=== PATIENT | male | born 1995 | race Caucasian/White ===

== ENCOUNTER 2022-03-20 08:00 | Outpatient (CLI) | payer OTHER | END 2022-03-20 23:59 | disposition home or self-care (01) | LOC: LAB.N 08:00 | PROVIDERS: ATTEND Physician Assistant | DX: R05.9 Cough, unspecified (principal); Z20.822 Contact with and (suspected) exposure to COVID-19 ==

== ENCOUNTER 2023-03-25 14:20 | Outpatient (CLI) | payer OTHER ==
--- NOTE | 2023-03-25 15:07 | Sleep Patient Instructions ---
Sleep Center Visit Summary - Patient Visit Information Reason for Visit: Initial consult for evaluation of sleep disordered breathing and other sleep issues. - Patient Instructions Instructions Attached: Sleep Study, Sleep Clinic Visit, Sleep Study Home Monitor Additional Instructions: You will be completing a sleep study, either an in-lab polysomnography (PSG) or home sleep study (HST). You will follow-up in the sleep care office after the sleep study is completed to hear the results and talk about therapy, if needed. You will be called by our office staff to schedule this appointment, but you may contact us with any questions. - Clinic Information Contact: [facility] [address] [place] [id number] [email or web address] T: [phone]
--- NOTE | 2023-03-25 15:13 | SLEEP CARE CONSULTATION ---
Information from patient questionnaire entered by Emmanuelle Dao. I have reviewed and concur with the information entered by Emmanuelle Dao. This document represents the service I personally performed and the decisions made by me, Yulia Hooekr ARNP. History of Present Illness Service Date and Time: 03/25/2023 1420 Reason for Visit: New patient Chief Complaint: reports: Snoring, Frequent awakenings at night Date of Onset: 2.5YRS Usual bedtime: 9-10PM Time it takes to fall asleep: 1-2HRS Snores at night: Yes Observed to quit breathing while asleep: No Sleeps alone due to snoring: No (he will occasionally sleep separate) Number of times waking at night: 2-3 Reasons for waking at night: reports: Other (UNKNOWN). denies: Choking, Gasping for air Toss, Turn, or Twitch while sleeping: Yes Recalls having dreams: No Usually gets out of bed at: 0630; weekends 0800 Feels refreshed in the morning: No Morning headache: Yes (3 days a week; HR AFTER WAKING) Sleepy or fatigued during the day: Yes Ever fallen asleep while driving: No Takes day naps: No Prior sleep studies: No Additional HPI information: I had the pleasure of seeing KIERSTEN RAY today regarding the possibility of him having a sleep disorder. His current complaints are snoring and frequent night awakenings. He has history of tonsil stones and needs sleep evaluation prior to surgery. He states he has a hard time falling asleep, 1-2 hours on average, and then will wake up 2-3 times a night. He sometimes can fall back to sleep in a few minutes but other times he cannot go back to sleep easily. He states he rarely gets more than 5 hours of sleep nightly. He does not wake up feeling rested and is tired throughout the day. He will wake up with headaches that sometimes turn into migraines. - Parasomnia Symptoms Ever been unable to move upon waking from sleep: No Walks in sleep: No Talks in sleep: No Ever acted out dreams in sleep: No Ever felt weak in the knees when startled or emotional: No Bothered by creepy, crawly, restless sensations in legs: Yes (rarely occurs; sometimes feels like tingling feeling of his body) Problems with memory or concentration: Yes (little bit of both; mainly concentration) Subjective Initial [place] Sleepiness Scale score: 12 (03/15/23) Past Medical History Past Medical History: reports: Anxiety Social History The patient's occupation is a AM. Patient is and lives in [place]. Have you smoked in the past 12 months: Yes (vaping) Years of smokin Alcohol use: No Caffeine use: Yes Caffeine amount and frequency: 1-2 DAY 3X WEEK Family History Family history of sleep disordered breathing: Yes Family Hx Sleep Apnea: Father: Snoring Allergies and Home Medications Known drug allergies: No Drug allergies reviewed: Yes Home medication list reviewed: Yes Allergy and home medication list: Medications: Tylenol prn Review of Systems Weight gain over past 5 years: 35 Cardiovascular: denies: high blood pressure Respiratory: denies: shortness of breath Gastrointestinal: reports: heartburn Neurological: reports: headaches. denies: head trauma Psychiatric: reports: anxiety Ear/Nose/Throat: reports: injury to nose, wisdom teeth removed. denies: tonsillectomy Endocrine: reports: sluggishness. denies: thyroid disease Musculoskeletal: reports: neck pain, muscle pain or cramping, mobility problems Immunologic: denies: allergies to food or environment Physical Exam Vital signs obtained and entered by: EMMANUELLE Lehman MA Blood Pressure: 122/64 (LEFT ARM) Cuff size: regular Heart Rate: 62 O2 Saturation: 95 Height: 6 ft 1 in Weight: 230 lb 3.2 oz Body Mass Index: 30.3 BMI Classification: Obese Neck circumference: 16.75 Mouth and throat: narrow oropharynx Soft palate: long Hard palate: normal Uvula: normal Uvula visualization: 100% Mallampati Class I Tongue: enlarged in size with teeth montes on lateral edges Tonsils: 1+ Neck: normal w/o lymphadenopathy or thyromegaly Heart: regular rate and rhythm Lungs: clear bilaterally Impression and Plan 1. Suspected Obstructive Sleep Apnea-Hypopnea Syndrome, as suggested by a history of loud and irregular snoring, morning headache, frequent awakening during the night, unrefreshed sleep, cognitive impairment, and excessive daytime sleepiness. Narrow oropharynx and obesity are common predisposing factors for obstructive sleep apnea-hypopnea syndrome. I recommend proceeding to polysomnography to confirm the diagnosis and to assess severity. If the patient has significant sleep disordered breathing, a manual CPAP titration study will also be performed to find the optimal treatment pressure. I informed the patient of what the sleep studies involve and after some discussion, obtained agreement to proceed. The pathophysiology of obstructive sleep apnea-hypopnea syndrome was discussed with the patient and health risks of cardiovascular and cerebrovascular disease if not treated. Risks of drowsy driving discussed in detail and patient advised to avoid long distance driving and to hide puller at the first sign of drowsiness. Patient agreed to plan. * Schedule polysomnography +- manual CPAP titration study and return in 1-2 weeks after the study to discuss result and initiate therapy. * Avoid long distance driving or driving when feeling sleepy. * Avoid alcohol, sedative and muscle relaxant around bedtime. * Attempt to lose weight. * Review instructions provided by trained office staff on how to prepare for the sleep study. * Return for follow-up after sleep study completed. Counseling Topics: Weight loss health impact Visit Type: In Office Time Spent with Patient (minutes): 31 Provider Statement: I spent 100% of the Face to Face Visit with the patient with greater than 50% spent counseling the patient and coordination of care.
[2023-03-25 15:14] VITALS: BP 122/64
== END 2023-03-25 14:21 | disposition home or self-care (01) ==
LOC: SC 14:20
PROVIDERS: ATTEND Nurse Practitioner Family
DX: R06.83 Snoring (principal); G47.8 Other sleep disorders; G47.00 Insomnia, unspecified; R51.9 Headache, unspecified; G47.10 Hypersomnia, unspecified; E66.9 Obesity, unspecified; Z68.30 Body mass index [BMI] 30.0-30.9, adult; F17.290 Nicotine dependence, other tobacco product, uncomplicated
CPT/HCPCS: 99203; 99212

== ENCOUNTER 2023-04-28 19:37 | Outpatient (CLI) | payer OTHER | END 2023-04-28 19:38 | disposition home or self-care (01) | LOC: SC 19:37 | PROVIDERS: ATTEND Nurse Practitioner Family | DX: R06.83 Snoring (principal); G47.8 Other sleep disorders; G47.00 Insomnia, unspecified; R51.9 Headache, unspecified; G47.10 Hypersomnia, unspecified; E66.9 Obesity, unspecified; Z68.30 Body mass index [BMI] 30.0-30.9, adult | CPT/HCPCS: 95810 ==